=== PATIENT | female | born 1975 | race African-American/Black ===

== ENCOUNTER 2017-06-23 21:43 | Emergency (ER) | payer SELFPAY ==
[~2017-06-23] VITALS: Ht 162.6 cm; Wt 100.0 kg
[2017-06-23] MEDS ORDERED: ALBUTEROL (0.083%) 2.5MG/3ML NEB HHN STA (21:55)
[2017-06-23] MEDS ORDERED: PREDNISONE 20MG TABLET PO STA (21:55)
[2017-06-23] MEDS ORDERED: IPRATROPIUM BROMIDE (0.02%) 0.5MG/2.5ML NEB HHN STA (21:55)
[2017-06-24] MEDS ORDERED: IPRATROPIUM/ALBUTEROL 0.5-3(2.5)MG/3ML NEB HHN ONE
[2017-06-24 01:21] VITALS: BP 146/98
== END 2017-06-24 05:09 | disposition home or self-care (01) ==
LOC: ER 21:43
DX: J45.901 Unspecified asthma with (acute) exacerbation (principal); R42 Dizziness and giddiness; I10 Essential (primary) hypertension; E03.9 Hypothyroidism, unspecified; Z98.84 Bariatric surgery status
CPT/HCPCS: 71045; 81025; 94640; 99284; J7512; J7611; J7620